=== PATIENT | male | born 1990 | race Caucasian/White ===

== ENCOUNTER 2016-12-14 21:54 | Emergency (ER) | payer SELFPAY ==
[2016-12-14 23:57] VITALS: BP 140/86
== END 2016-12-15 08:22 | disposition left against medical advice (07) ==
LOC: ED 21:54
DX: R09.89 Other specified symptoms and signs involving the circulatory and respiratory systems (principal); Z53.21 Procedure and treatment not carried out due to patient leaving prior to being seen by health care provider